=== PATIENT | female | born 1960 | race Hispanic/Latino ===

== ENCOUNTER 2016-08-11 19:53 | Inpatient (IN) | payer SELFPAY ==
[~2016-08-11] VITALS: Ht 203.2 cm; Wt 77.1 kg
[~2016-08-11 19:53] MED LIST: BACTRIM DS TAB1 EACH PO; KEFLEX500 M1 PO; LEVOTHYROXINE75 MCG PO; ROXICODONE5 M1 PO
[2016-08-11 20:25] LABS: ABSOLUTE BASOPHIL COUNT 0 /CUMM (0.0-0.2); ABSOLUTE EOSINOPHIL COUNT 0.1 /CUMM (0.0-0.7); ABSOLUTE GRANULOCYTE CT 8.3 /CUMM (1.4-6.5); ABSOLUTE LYMPH COUNT 1.7 /CUMM (1.2-3.4); ABSOLUTE MONOCYTE COUNT 1.1 /CUMM (0.10-0.60); BASOPHIL % 0.3 % (0.0-2.0); EOSINOPHIL % 0.5 % (0-5); GRANULOCYTE % 73.8 % (42.2-75.2); HEMATOCRIT 37.4 % (37-47); MEAN CORPUSCULAR HGB 27.9 PG (27.0-31.0); MEAN CORPUSCULAR HGB CONC 33.2 G/DL (33.0-37.0); MEAN PLATELET VOLUME 8.5 FL (7.4-10.4); PLATELET COUNT 236 /CUMM (130-400); RBC DISTRIBUTION WIDTH 13.4 % (11.5-14.5); RED BLOOD CELL CT 4.46 /CUMM (4.20-5.40); WHITE BLOOD CELL COUNT 11.2 /CUMM (4.8-10.8)
--- NOTE | 2016-08-11 21:00 | ED SKIN/ALLERGY COMPLAINT ---
See Addendum History of Present Illness General Chief Complaint: Skin Rash/ Abcess Stated Complaint: "PER PT CELLULITIS ON RT BUTTOX" Source: patient Exam Limitations: no limitations Vital Signs & Intake/Output Vital Signs & Intake/Output Vital Signs Date Time Temp Pulse Resp B/P B/P Pulse O2 O2 Flow FiO2 Mean Ox Delivery Rate 08/11 2312 98.8 98 17 122/76 96 Room Air 08/11 2004 100.2 105 16 116/73 95 Room Air ED Intake and Output 08/12 0000 08/11 1200 Intake Total 1200 Output Total Balance 1200 Intake, IV 1100 Intake, Oral 100 Patient 170 lb Weight Weight Reported by Patient Measurement Method Allergies Coded Allergies: acetaminophen (From TYLENOL) (HIGH BP 08/09/16) Reconcile Medications Cephalexin (Keflex) 500 MG CAPSULE 1 CAP PO BID CELLULITIS Levothyroxine Sodium 75 MCG TABLET 1 TAB PO DAILY THYROID (Reported) Oxycodone HCl (Roxicodone) 5 MG TABLET 1 TAB PO BID PRN PAIN Sulfamethoxazole/Trimethoprim (Bactrim Ds Tablet) 800 MG-160 MG TABLET 1 TAB PO BID cellulitis Triage Note: TRIAGE: PT RETURNS TO ED AFTER TWO DAYS OF ANTIBIOTIC USE FOR CELLULITIS TO R BUTTOCKS/PERIANAL ABSCESS FOR NO IMPROVEMENT IN PAIN OR N/V. ALSO ENDORSES UPPER RIGHT QUAD PAIN. STATES ABSCESS WAS DRAINED DURING LAST VISIT AND FEELS ITS BIGGER THAN LAST VISIT. TEMP 100.[address] BEARD IN ROOM IN TRIAGE TO DISCUSS PLAN FOR LABS Triage Nurses Notes Reviewed? yes Onset: Gradual Duration: getting worse Timing: recent history Severity: severe Severity Numbers: 7 HPI: Patient is a 56-year-old female with a past medical history of hypothyroidism who presents to emergency room with concerns of not feeling any better after she was evaluated 2 days ago AT [facility] of right gluteal cellulitis and abscess. Patient was treated by me in the ER where she receives an incision and drainage to the right gluteal region where the induration and fluctuant site was however no purulent discharge was ascertained. Culture was not ascertained. Surgical pen markings were bordered the erythema of the right gluteal region. Patient was compliant with her Keflex and Bactrim PRESCRIPTIONS however she states the redness is worse the pain is worse and patient continues to have fevers. (TOMMY SAHU,NALLELY) Past History Travel History Traveled to [place] past 21 day No Medical History Any Pertinent Medical History? see below for history Neurological: NONE EENT: NONE Cardiovascular: NONE Respiratory: NONE Gastrointestinal: NONE Hepatic: ELEVATED LFT'S Renal: NONE Musculoskeletal: NONE Psychiatric: NONE Endocrine: hypothyroidism Surgical History Surgical History: hysterectomy Psychosocial History What is your primary language Faroese Tobacco Use: Current Daily Use Daily Tobacco Use Amount/Type: => 5 Cigarettes daily Family History Hx Contributory? No (NALLELY ARTEAGA) Review of Systems Review of Systems Constitutional: Reports: see HPI, fever. EENTM: Reports: no symptoms. Respiratory: Reports: no symptoms. Cardiovascular: Reports: no symptoms. GI: Reports: no symptoms. Genitourinary: Reports: no symptoms. Musculoskeletal: Reports: no symptoms. Skin: Reports: see HPI, erythema. Neurological/Psychological: Reports: no symptoms. Hematologic/Endocrine: Reports: no symptoms. Immunologic/Allergic: Reports: no symptoms. All Other Systems: Reviewed and Negative (NALLELY ARTEAGA) Physical Exam Physical Exam General Appearance: no apparent distress, alert, comfortable Comments: Well-developed well-nourished person in no acute distress HEENT: Normal EENT exam, Neck: Supple, no lymphadenopathy, normal range of motion without pain or tenderness Back: Nontender, no CVA tenderness. Cardiovascular: Regular rate and rhythms no murmurs rubs or gallops, normal JVP Respiratory: Chest nontender. No respiratory distress.breath sounds clear to auscultation bilaterally Abdomen: Soft, nontender nondistended, no appreciable organomegaly. Normal bowel sounds. No ascites Extremity: No edema, no calf tenderness to palpation, normal and equal pulses. Neuro: Alert oriented x3, motor sensory normal, Psych: Mood and affect is normal, memory and judgment is normal. Diagram Body: 1) Noted linear induration of approximately 5 cm no active discharge 2) Noted erythema warmth and tenderness (NALLELY ARTEAGA) Progress Differential Diagnosis: abscess/cellulitis, contact dermatitis, erythema multiforme, lyme disease Plan of Care: Orders Procedure Date/time Status Nothing by Mouth 08/12 B Active CBC WITHOUT DIFFERENTIAL 08/12 599 Active BASIC ELECTROLYTES PLUS BUN&CR 08/[address] in observation 08/12 2247 Active Pathway - chart 08/11 2244 Active Patient Data 08/11 2244 Active Code Status 08/11 2244 Active Add-on Test (ER Only) 08/11 2110 Active BLOOD CULTURE 08/11 2110 Active LACTIC ACID 08/11 2017 Complete COMPREHENSIVE METABOLIC PANEL 08/12 2007 Complete CBC WITHOUT DIFFERENTIAL 08/[address] in observation 08/11 UNK Active VTE Mechanical Prophylaxis 08/11 UNK Active Vital Signs 08/11 UNK Active Intake & Output 08/11 UNK Active Activity/Ambulation 08/11 UNK Active Current Medications Sig/Yoshi Start time Last Medication Dose Stop Time Status Admin Levothyroxine Sodium 0.075 MG DAILY AC 08/12 07 UNVr (Synthroid) Heparin Sodium 5,000 UNIT Q8 08/12 599 UNVr (Porcine) Ampicillin Sodium/ 3,000 MG Q6 08/11 2359 UNVr Sulbactam Sodium (Unasyn) Sodium Chloride 100 ML (Normal Saline 0.9%) Dextrose/Sodium 1,000 ML .Q10H 08/11 2245 AC Chloride (D5-Normal Saline) Morphine Sulfate 2 MG Q3P PRN 08/11 2245 AC (Morphine) Ondansetron HCl 4 MG Q6P PRN 08/11 2245 AC (Zofran) Laboratory Tests 08/11/16 2018: Anion Gap 13, Estimated GFR 58 L, BUN/Creatinine Ratio 20.0, Glucose 122 H, Lactic Acid 1.1, Calcium 8.9, Total Bilirubin 0.5, AST 47 H, ALT 111 H, Alkaline Phosphatase 158 H, Total Protein 7.1, Albumin 3.9, Globulin 3.2, Albumin/Globulin Ratio 1.2, CBC w Diff NO MAN DIFF REQ, RBC 4.46, MCV 84.0, MCH 27.9, RDW 13.4, MPV 8.5, Gran % 73.8, Lymphocytes % 15.3 L, Monocytes % 10.1 H , Eosinophils % 0.5, Basophils % 0.3, Absolute Granulocytes 8.3 H, Absolute Lymphocytes 1.7, Absolute Monocytes 1.1 H, Absolute Eosinophils 0.1, Absolute Basophils 0, PUBS MCHC 33.2 Microbiology 08/12 2139 BLOOD: Blood Culture - RECD 08/11 2134 BLOOD: Blood Culture - RECD Patient and so examination as expanding erythema to the surgical pen markings from previous ER visit. CT scan was warranted to identify a baseline depth FOR concerns of an abscess to his right gluteal region Discussed admission with Niraj Maxwell MD who agrees to admit under his service in which patient requires IV antibiotics and surgical incision and drainage. Discussed disposition plan with patient who agrees and has no questions patient currently is resting comfortably at bedside (NALLELY ARTEAGA) Diagnostic Imaging: Viewed by Me: CT Scan. Radiology Impression: acute abnormality Comments: PATIENT: CARLIE VARGAS PRESENT AGE: 56 PATIENT ACCOUNT NO: [id number] : 62 LOCATION: [facility] ORDERING PHYSICIAN: NALLELY SAHU SERVICE DATE: 08/11/16 EXAM TYPE: CAT - CT PELVIS W IV CONTRAST EXAMINATION: CT PELVIS WITH CONTRAST CLINICAL INFORMATION: Left medial gluteal cellulitis. Evaluate for an abscess. COMPARISON: No relevant prior studies are available for comparison. TECHNIQUE: Helical scanning was performed with submillimeter collimation through the pelvis with 95 mL of Optiray 320 intravenous contrast. Sagittal and coronal multiplanar 2-D reconstructions were obtained. DLP: 343.48 mGy-cm FINDINGS: BOWEL: The visualized portions of the small and large bowel are unremarkable. The appendix is within normal limits. PELVIS: There is no pelvic mass or free fluid. VASCULAR: Contrast opacifies the iliac arteries and its branch vessels. There are scattered atherosclerotic calcifications. OSSEOUS STRUCTURES: No lytic or blastic osseous lesion. Small marginal osteophytes at the right as well as the left acetabulum. SOFT TISSUES: There is a peripherally enhancing, centrally hypodense fluid collection within the subcutaneous fat to the right of the gluteal fold. This appears posterior to the rectum. This measures approximately 6.0 x 2.4 x 5.4 cm and is consistent with a perirectal abscess. There is mild adjacent fat stranding. IMPRESSION: Perirectal abscess within the subcutaneous fat to the right of the gluteal fold with mild adjacent fat stranding. DICTATED BY: KHURRAM PAREDES MD DATE/TIME DICTATED:08/11/162210 UROLOGY NURSE:LIYA DATE/TIME TRANSCRIBED:08/11/162210 (NALLELY ARTEAGA) Departure Departure Disposition: STILL A PATIENT Condition: Stable Clinical Impression Primary Impression: Cellulitis of buttock, right Secondary Impressions: Perirectal abscess Referrals: PATIENT HAS NO PRIMARY CARE DR (PCP/Family) Departure Forms: Customer Survey General Discharge Information Admission Note Spoke With: CHASIDY NULL,NIRAJ N. Documentation of Exam: Documentation of any treatments & extenuating circumstances including Concerns Regarding Discharge (functional status, medication knowledge or non-compliance, living conditions, etc.) that warrant an admission rather than observation: [ Discussed patient with Dr. SILVA who agrees with admission for concerns of cellulitis AND PERIRECTAL ABSCESS, patient has failed outpatient treatment of antibiotics patient will require IV antibiotics, repeat labs infectious disease consultation surgical consultation,SURGICAL I/D and outpatient treatment at this time would be medically harmful] (TOMMY SAHU,NALLELY) PA/[employer]ACER Co-Sign Statement Statement: ED Attending supervision documentation- [] I saw and evaluated the patient. I have also reviewed all the pertinent lab results and diagnostic results. I agree with the findings and the plan of care as documented in the PA's/BISQUE KILN PLACER's documentation. [x] I have reviewed the ED Record and agree with the PA's/BISQUE KILN PLACER's documentation. [] Additions or exceptions (if any) to the PAs/BISQUE KILN PLACER's note and plan are summarized below: [] (CHIRAG NULL,KIKA Bosch)
--- NOTE | 2016-08-11 22:25 | CT SCAN REPORT ---
EXAMINATION: CT PELVIS WITH CONTRAST CLINICAL INFORMATION: Left medial gluteal cellulitis. Evaluate for an abscess. COMPARISON: No relevant prior studies are available for comparison. TECHNIQUE: Helical scanning was performed with submillimeter collimation through the pelvis with 95 mL of Optiray 320 intravenous contrast. Sagittal and coronal multiplanar 2-D reconstructions were obtained. DLP: 343.48 mGy-cm FINDINGS: BOWEL: The visualized portions of the small and large bowel are unremarkable. The appendix is within normal limits. PELVIS: There is no pelvic mass or free fluid. VASCULAR: Contrast opacifies the iliac arteries and its branch vessels. There are scattered atherosclerotic calcifications. OSSEOUS STRUCTURES: No lytic or blastic osseous lesion. Small marginal osteophytes at the right as well as the left acetabulum. SOFT TISSUES: There is a peripherally enhancing, centrally hypodense fluid collection within the subcutaneous fat to the right of the gluteal fold. This appears posterior to the rectum. This measures approximately 6.0 x 2.4 x 5.4 cm and is consistent with a perirectal abscess. There is mild adjacent fat stranding. IMPRESSION: Perirectal abscess within the subcutaneous fat to the right of the gluteal fold with mild adjacent fat stranding.
--- NOTE | 2016-08-11 22:41 | Admission Core Measures ---
Admission Lab Results I reviewed the following labs: Laboratory Tests 08/11 2017 Chemistry Sodium (137 - 145 mmol/L) 135 L Potassium (3.5 - 5.1 mmol/L) 3.8 Chloride (98 - 107 mmol/L) 98 Carbon Dioxide (22 - 30 mmol/L) 24 Anion Gap (5 - 16) 13 BUN (7 - 17 mg/dL) 20 H Creatinine (0.5 - 1.0 mg/dL) 1.0 Estimated GFR (>60 ml/min) 58 L BUN/Creatinine Ratio (7 - 25 %) 20.0 Glucose (65 - 99 mg/dL) 122 H Lactic Acid (0.7 - 2.1 mmol/L) 1.1 Calcium (8.4 - 10.2 mg/dL) 8.9 Total Bilirubin (0.2 - 1.3 mg/dL) 0.5 AST (14 - 36 U/L) 47 H ALT (9 - 52 U/L) 111 H Alkaline Phosphatase (<127 U/L) 158 H Total Protein (6.3 - 8.2 g/dL) 7.1 Albumin (3.5 - 5.0 g/dL) 3.9 Globulin (1.9 - 4.2 gm/dL) 3.2 Albumin/Globulin Ratio (1.1 - 2.2 %) 1.2 Hematology CBC w Diff NO MAN DIFF REQ WBC (4.8 - 10.8 /CUMM) 11.2 H RBC (4.20 - 5.40 /CUMM) 4.46 Hgb (12.0 - 16.0 G/DL) 12.4 Hct (37 - 47 %) 37.4 MCV (81.0 - 99.0 FL) 84.0 MCH (27.0 - 31.0 PG) 27.9 RDW (11.5 - 14.5 %) 13.4 Plt Count (130 - 400 /CUMM) 236 MPV (7.4 - 10.4 FL) 8.5 Gran % (42.2 - 75.2 %) 73.8 Lymphocytes % (20.5 - 51.1 %) 15.3 L Monocytes % (1.7 - 9.3 %) 10.1 H Eosinophils % (0 - 5 %) 0.5 Basophils % (0.0 - 2.0 %) 0.3 Absolute Granulocytes (1.4 - 6.5 /CUMM) 8.3 H Absolute Lymphocytes (1.2 - 3.4 /CUMM) 1.7 Absolute Monocytes (0.10 - 0.60 /CUMM) 1.1 H Absolute Eosinophils (0.0 - 0.7 /CUMM) 0.1 Absolute Basophils (0.0 - 0.2 /CUMM) 0 PUBS MCHC (33.0 - 37.0 G/DL) 33.2 Admission Meds I reviewed the following Meds: Current Medications Sig/Yoshi Start time Last Medication Dose Stop Time Status Admin Sodium Chloride 1,000 ML BOLUS ONE 08/115 AC 08/11 (Normal Saline 0.9%) 08/11 2314 2222 Acute Coronary Syndrome Inclusion Criteria ACS Diagnosis No Inpatient Core Measures LDL Reminder: If No, please order W/I first 24hr of stay Congestive Heart Failure Inclusion Criteria CHF Diagnosis No Cerebrovascular accident Inclusion Criteria CVA/TIA Diagnosis No Inpatient Core Measures Bedside Swallow Eval Reminder: If BSE failed, place ST order Antithrombotic Reminder: Order Antithrombotic Medication by end of day 2 Antithrombotic Reminder: Document Reason Antithrombotic Not ordered by end of day 2 AFIB/Flutter Reminder: If Present, add to problem list AFIB/Flutter Reminder: Order Anticoag Medication for pts with AFIB/Flutter Atherosclerosis Reminder: If Present, add to problem list LDL Reminder: If No, please order W/I first 24hr of stay PT Order Reminder: If No, please order Venous thromboembolism Inpatient Core Measures VTE Risk Factors: Age > 40 [facility] d/t No contraindications No VTE Pharm Prophylaxis d/t No contraindications Inclusion Criteria - Per Current guidelines, there needs to be overlap - treatment for the first 5 days of Warfarin therapy. - Parenteral Anticoagulation (IV or SC) needs to be - given along with Warfarin therapy. VTE Diagnosis No VTE Type NONE VTE Confirmed by (Test) NONE Problem List As ranked by this Provider includes Assessment & Plan 1. Perirectal abscess HOME MEDS Home Med List Cephalexin (Keflex) 500 MG CAPSULE 1 CAP PO BID CELLULITIS Levothyroxine Sodium 75 MCG TABLET 1 TAB PO DAILY THYROID (Reported) Oxycodone HCl (Roxicodone) 5 MG TABLET 1 TAB PO BID PRN PAIN Sulfamethoxazole/Trimethoprim (Bactrim Ds Tablet) 800 MG-160 MG TABLET 1 TAB PO BID cellulitis
--- NOTE | 2016-08-12 00:07 | History & Physical Pre-Op ---
General Information and HPI History of Present Illness: CC: Buttock pain HPI: 56-year-old nondiabetic smoker went to the ER a few days ago with some painful red swelling on her right buttock and incision was made but she didn't get better so she returned to the ER it's more swollen she has some fevers hurts more to sit on pain is constant she is moving her bowels, this is her first such episode she doesn't recall any prior trauma or unusual straining this started about a week and a half ago, there is no family history of similar. Otherwise no changes bowel habits, weight or appetite. I've reviewed the [facility]. No history of GERD, PUD, bleeding problems, heart disease or issues with anesthesia. Family history negative for diabetes or cancer. Allergies/Medications Allergies: Coded Allergies: acetaminophen (From TYLENOL) (HIGH BP 08/09/16) Home Med list Cephalexin (Keflex) 500 MG CAPSULE 1 CAP PO BID CELLULITIS Levothyroxine Sodium 75 MCG TABLET 1 TAB PO DAILY THYROID (Reported) Oxycodone HCl (Roxicodone) 5 MG TABLET 1 TAB PO BID PRN PAIN Sulfamethoxazole/Trimethoprim (Bactrim Ds Tablet) 800 MG-160 MG TABLET 1 TAB PO BID cellulitis Past History Medical History Neurological: NONE EENT: NONE Cardiovascular: NONE Respiratory: NONE Gastrointestinal: NONE Hepatic: ELEVATED LFT'S Renal: NONE Musculoskeletal: NONE Psychiatric: NONE Endocrine: hypothyroidism Surgical History Pertinent Surgical History: hysterectomy Review of Systems Review of Systems: Constitutional: No fever, sweats or weight loss ENMT: No sore throat Cardiovascular: No chest pain, palpitations or leg swelling Respiratory: No shortness of breath, cough, or sputum or dyspnea on exertion GI: No GERD or bleeding per rectum : No dysuria or hematuria Musculoskeletal: No new muscle weakness, bone or joint pain Skin / Breast: No jaundice, rashes or itching Psychiatric: No history of drug or alcohol abuse no depression or anxiety Hematologic / lymphatic system: No problems with excessive bleeding, bruising, or blood clots Exam & Diagnostic Data Last 24 Hrs of Vital Signs/I&O i REVIEWED Vital Signs Date Time Temp Pulse Resp B/P B/P Pulse O2 O2 Flow FiO2 Mean Ox Delivery Rate 08/12 2311 98.8 98 17 122/76 96 Room Air 08/11 2004 100.2 105 16 116/73 95 Room Air I reviewed Intake & Output 08/12 0800 08/12 0000 08/11 1600 Intake Total 1200 Output Total Balance 1200 Intake, IV 1100 Intake, Oral 100 Patient 170 lb Weight Weight Reported by Patient Measurement Method Physical Exam: Constitutional: pleasant, no acute distress, conversant Eyes: sclera anicteric ENMT: ears and nose atraumatic, moist mucous membranes, good dentition, no lip lesions Neck: Supple, trachea is midline, no cervical or supraclavicular adenopathy and no palpable thyromegaly Cardiovascular: S1, S2, no murmurs, no peripheral edema Respiratory: clear to auscultation with normal respiratory effort and no intercostal retractions GI: abdomen soft, nontender, nondistended, no palpable hepatosplenomegaly Extremities / lymphatics: symmetrically warm, free range of motion no peripheral edema, no cervical, supraclavicular, axillary, or inguinal adenopathy Musculoskeletal: Did not evaluate gait and station, no digital cyanosis, good muscle strength and tone no atrophy, motor grossly 5 out of 5 throughout Skin: no jaundice, no rashes warm, nondiaphoretic, no areas of erythema or induration except medial right buttock is a little firmness some faint erythema no crepitus and its tender the areas roughly 5 cm and the incision is closed Psychiatric: mood and affect are appropriate and alert and oriented to person place and time Last 24 Hrs of Labs/Tristen: I reviewed Laboratory Tests 08/11/16 2018: Anion Gap 13, Estimated GFR 58 L, BUN/Creatinine Ratio 20.0, Glucose 122 H, Lactic Acid 1.1, Calcium 8.9, Total Bilirubin 0.5, AST 47 H, ALT 111 H, Alkaline Phosphatase 158 H, Total Protein 7.1, Albumin 3.9, Globulin 3.2, Albumin/Globulin Ratio 1.2, CBC w Diff NO MAN DIFF REQ, RBC 4.46, MCV 84.0, MCH 27.9, RDW 13.4, MPV 8.5, Gran % 73.8, Lymphocytes % 15.3 L, Monocytes % 10.1 H , Eosinophils % 0.5, Basophils % 0.3, Absolute Granulocytes 8.3 H, Absolute Lymphocytes 1.7, Absolute Monocytes 1.1 H, Absolute Eosinophils 0.1, Absolute Basophils 0, PUBS MCHC 33.2 Microbiology 06/25 2140 BLOOD: Blood Culture - RECD 08/11 2134 BLOOD: Blood Culture - RECD Assessment/Plan Assessment/Plan: Studies: I reviewed the CT scan from today on PACS myself and shows some deep fluid loculation no gas medial right buttock not quite to anus Impression is perirectal abscess developing gradually, collecting in buttock with risk factor of smoking but no diabetes she has some fever to mild leukocytosis plan is to give her IV antibiotics and bring her to the operating room for incision and drainage perhaps this is a fistula which may need to be treated separately as I explained to her first it's to open it and drain it. Risks include bleeding infection sometimes have to reoperate to drain more or even debride. As Ranked By This Provider Problem List: 1. Perirectal abscess 2. Cellulitis of buttock, right
[2016-08-12 01:18] VITALS: BP 110/60
[2016-08-12 07:24] VITALS: BP 108/60
[2016-08-12 09:30] LABS: ABSOLUTE BASOPHIL COUNT 0 /CUMM (0.0-0.2); ABSOLUTE EOSINOPHIL COUNT 0.1 /CUMM (0.0-0.7); ABSOLUTE GRANULOCYTE CT 6.9 /CUMM (1.4-6.5); ABSOLUTE LYMPH COUNT 1.4 /CUMM (1.2-3.4); BASOPHIL % 0.3 % (0.0-2.0); EOSINOPHIL % 0.6 % (0-5); GRANULOCYTE % 73.6 % (42.2-75.2); HEMATOCRIT 32.5 % (37-47); MEAN CORPUSCULAR HGB 28.4 PG (27.0-31.0); MEAN CORPUSCULAR HGB CONC 33.9 G/DL (33.0-37.0); MEAN CORPUSCULAR VOLUME 83.7 FL (81.0-99.0); MEAN PLATELET VOLUME 9.3 FL (7.4-10.4); PLATELET COUNT 197 /CUMM (130-400); RBC DISTRIBUTION WIDTH 13.3 % (11.5-14.5); RED BLOOD CELL CT 3.89 /CUMM (4.20-5.40); WHITE BLOOD CELL COUNT 9.4 /CUMM (4.8-10.8)
--- NOTE | 2016-08-12 17:16 | PN- General Surgery ---
Subjective Subjective: POST-OP NOTE: No complaints. Slightly hypotensive in pacu, but asymptomatic. No dizziness. No shortness of breath. No chest pains. "I'm hungry". No nausea. Currently afebrile , although she had a temp of 102.9 earlier today. Objective Vital Signs and I&Os Vital Signs Date Time Temp Pulse Resp B/P B/P Pulse O2 O2 Flow FiO2 Mean Ox Delivery Rate 08/12 0724 102.0 94 20 108/60 94 Room Air 08/12 0707 102.0 08/12 0707 102.0 08/12 0607 102.9 08/12 0545 102.9 08/12 0118 98.2 84 20 110/60 93 Room Air 08/11 2312 98.8 98 17 122/76 96 Room Air 08/11 2004 100.2 105 16 116/73 95 Room Air Intake & Output 08/12 1600 08/12 0800 08/12 0000 08/11 1600 08/11 0800 08/11 0000 Intake Total 5399 504 2424 Output Total Balance 9337 563 1427 Intake, IV 6930 710 8605 Intake, Oral 120 100 100 Number 0 Bowel Movements Patient 170 lb 170 lb Weight Weight Reported by Patient Measurement Method Physical Exam: General - alert & oriented x 3. comfortable. no acute distress. Lungs - clear bilaterally. no w/r/r. Cardiac - s1s2. reg. Abdomen - soft. nontender. Dressing intact. Extremities - warm bilaterally. no c/c/e. calves soft and nontender b/l. Assessment/Plan Assessment/Plan This 56 year old with hx hypothyroidism is POD#0 s/p incision & drainage kareem- rectal abscess, febrile to 102 this morning and hypotensive currently in pacu - although asymptomatic, ?sepsis will try bolus of NS 1 liter in pacu advance diet as tolerated pain control as ordered continue iv unasyn f/u OR and blood cxs packing in place hep sc - dvt ppx f/u am labs home meds ordered will d/w Core Measures/Miscellaneous Venous Thromboembolism VTE Risk Factors: Age > 40, Surgery VTE Contraindications: No Contraindications VTE Diagnosis: No VTE Type: NONE VTE Confirmed by (Test): NONE Beta Sandee Is Beta Sandee a Home Med? No Antibiotics Is Patient on Antibiotics? Yes If Yes: infection
[2016-08-12 18:24] VITALS: BP 92/57
[2016-08-12 22:23] VITALS: BP 108/62
[2016-08-13 02:04] VITALS: BP 102/60
[2016-08-13 06:00] VITALS: BP 102/64; BP 130/78
[2016-08-13 08:30] LABS: ABSOLUTE BASOPHIL COUNT 0 /CUMM (0.0-0.2); ABSOLUTE EOSINOPHIL COUNT 0 /CUMM (0.0-0.7); ABSOLUTE GRANULOCYTE CT 6.2 /CUMM (1.4-6.5); ABSOLUTE MONOCYTE COUNT 0.4 /CUMM (0.10-0.60); BASOPHIL % 0.3 % (0.0-2.0); EOSINOPHIL % 0.1 % (0-5); GRANULOCYTE % 81.2 % (42.2-75.2); MEAN CORPUSCULAR HGB 28.2 PG (27.0-31.0); MEAN CORPUSCULAR HGB CONC 33.2 G/DL (33.0-37.0); PLATELET COUNT 207 /CUMM (130-400); RBC DISTRIBUTION WIDTH 13.8 % (11.5-14.5); RED BLOOD CELL CT 3.53 /CUMM (4.20-5.40); WHITE BLOOD CELL COUNT 7.7 /CUMM (4.8-10.8)
[2016-08-13 14:00] VITALS: BP 110/60
--- NOTE | 2016-08-13 15:52 | Operative Report ---
Operative/Inv Procedure Report Surgery Date: 08/12/16 Name of Procedure: I&D perirectal abscess Pre-Operative Diagnosis: perirectal abscess Post-Operative Diagnosis: same Estimated Blood Loss: less than 50ml Surgeon/Snow Remover: CHASIDY NULL,NIRAJ Galloway Anesthesia: general endotracheal tube Operative/Procedure Note Note: After successful induction of anesthesia patient was repositioned into lithotomy the area of her perineum and buttocks was prepped and draped in the usual sterile fashion was an obvious indurated area in her medial right buttock perianal area was not inflamed but it was close using the CT scan as a guide I infiltrated local anesthetic had been near a little more anterior to the previous incision that had been made few days ago and I we incised that but continued it for a few millimeters anteriorly overall the incision was about a centimeter and a half so that I could get my index finger and we deepened it with cautery and with a hemostat had to gently pop into through the fascia to enter the abscess cavity which was pararectal doing a bimanual exam with a finger in the rectum I could feel that the rectum was uniform on the right side there was no obvious palpable nodularity and we irrigated the abscess cavity did not come out through the rectum there was pus in the abscess cavity which we did sent for culture we irrigated aspirated checked for any deeper extension or loculations there were none, there was no obvious fistula in ano, we then we packed the abscess cavity with iodoform packing covered it with gauze and tape were finish. EBL minimal lap and sponge counts correct wound expectancy infected IV fluids crystalloid complications none patient tolerated the procedure well was extubated and returned to recovery room in satisfactory condition.
--- NOTE | 2016-08-13 18:39 | PN- General Surgery ---
Surgical Brief Attending Note Brief Attending Note: feels m better, no pain, no more fevers, CBC better, less erytema there dressing dry actually, doyle pull packing in AM poss DC.
[2016-08-13 22:11] VITALS: BP 120/80
[2016-08-14 06:39] VITALS: BP 108/70
--- NOTE | 2016-08-14 07:49 | PN- General Surgery ---
Subjective Subjective: NO overnight events , No pain issues,fever,chills.Toleratiing diet. Objective Vital Signs and I&Os Vital Signs Date Time Temp Pulse Resp B/P B/P Pulse O2 O2 Flow FiO2 Mean Ox Delivery Rate 08/14 0639 98.2 64 18 108/70 95 Room Air 08/13 2211 98.4 66 20 120/80 99 Room Air 08/13 1400 98.0 60 18 110/60 98 Intake & Output 08/14 0800 08/14 0000 08/13 1600 08/13 0800 08/13 0000 08/12 1600 Intake Total 276 777 7963 740 1480 1220 Output Total 600 Balance 420 -500 2800 745 8558 1220 Intake, IV 300 100 233 083 6712 1100 Intake, Oral 120 1380 240 480 120 Number 1 1 Bowel Movements Output, Urine 600 Patient 170 lb Weight Weight Reported by Patient Measurement Method Physical Exam: Appears in no distress, very pleasant. Clear to ascultate bilaterally ,no additional sounds rales ,crackles.Regualr rate with S1 and S2 apprecaited in apex and base. soft ,nontenter,non distended , no rebound,guarding. Perirectal area: dressing is clean and intact. dressing was removed, there is a 1 cm incision in the R perirectal area.The packing material was removed an d the dressing was stained with purulant discharge. NO purulant drainage expressed. Irrigated the wound and repacked with 1 inch guaze. There is induration inferior to the wound and superior aspect. No fluctuance. M ild erythema around the wound. Assessment/Plan Assessment/Plan 56 y/o female s/p R ight side perirectal abscess I&D. post opday #1. Doing well , afebrile and wbc is nl. wound is improved.Will recommend contniue the daily dressing changes for addition 2 more days and complete the course of antibitocs.Likey to be discharged latter today with bactrim. Will discuss with attending . Problem List: 1. Perirectal abscess 2. Cellulitis of buttock, right Core Measures/Miscellaneous Venous Thromboembolism VTE Risk Factors: Age > 40, Surgery VTE Contraindications: No Contraindications VTE Diagnosis: No VTE Type: NONE VTE Confirmed by (Test): NONE Beta Sandee Is Beta Sandee a Home Med? No Antibiotics Is Patient on Antibiotics? Yes If Yes: infection
[2016-08-14] MEDS ORDERED: AUGMENTIN 875-1 EACH PO (09:19)
--- NOTE | 2016-08-14 09:24 | Patient Discharge Instructions ---
Discharge Instructions General Discharge Information You were seen/treated for: Perirectal abscess You had these procedures: Incision and drainage Watch for these problems: Significantly increased pain, increased foul-smelling drainage, or temperatures over 101 Increased swelling or redness around the incision No bath, but you may shower: Yes Other wound care: Remove packing tomorrow 08/15/2016 and cover with a dry dressing daily Diet Continue normal diet: Yes Activity Activity Self Limited: Yes Acute Coronary Syndrome Inclusion Criteria At DC or during hospital stay patient has or had the following: ACS DIAGNOSIS No Discharge Core Measures Meds if any: Prescribed or Continued at Discharge Meds if any: NOT Prescribed or Continued at Discharge Congestive Heart Failure Inclusion Criteria At DC or during hospital stay patient has or had the following: CHF DIAGNOSIS No Discharge Core Measures Meds if any: Prescribed or Continued at Discharge Meds if any: NOT Prescribed or Continued at Discharge Cerebrovascular accident Inclusion Criteria At DC or during hospital stay patient has or had the following: CVA/TIA Diagnosis No Discharge Core Measures Meds if any: Prescribed or Continued at Discharge Meds if any: NOT Prescribed or Continued at Discharge Venous thromboembolism Inclusion Criteria VTE Diagnosis No VTE Type NONE VTE Confirmed by (Test) NONE Discharge Core Measures - Per Current guidelines, there needs to be overlap - treatment for the first 5 days of Warfarin therapy. - If discharged on Warfarin prior to 5 days of - overlap therapy, the patient will need to be - assessed for post discharge needs including - *Post discharge parental anticoagulation - *Warfarin and/or parental anticoagulation education - *Follow up date to check INR post discharge At least 5 days overlap therapy as Inpatient No Meds if any: Prescribed or Continued at Discharge Note: Overlap Therapy is Warfarin and Anticoagulant Meds if any: NOT Prescribed or Continued at Discharge
== END 2016-08-14 13:16 | DRG 345 ==
LOC: ERH 19:53 → ERHI 22:45 → ENRESERV 23:17 → 2NA 08-12 01:16 → ENTRNSPT 08-12 18:05 → CMPTRNSPT 08-12 18:30 → 2NA 08-13 13:58 → ENPENDDIS 08-14 09:28 → 2NA 08-14 13:16
PROVIDERS: Pediatrics; Physician Assistant; Physician Assistant Surgical; ADMIT Surgery
PROC: 0D9P0ZX Drainage of Rectum, Open Approach, Diagnostic (ICD-10-PCS; principal; 2016-08-12)
DX: K61.1 Rectal abscess (principal); L03.317 Cellulitis of buttock; E03.9 Hypothyroidism, unspecified
CPT/HCPCS: 2NAP; 87070; 87075; 36415; 82436; 87040; 87071; 87147; 96361; 96374; 96375; J0131; J1100; J1644; J1885; J2405; J7040; J7042